=== PATIENT | male | born 1980 | race Caucasian/White ===

== ENCOUNTER 2019-09-04 17:34 | Emergency (ER) | payer SELFPAY ==
[~2019-09-04] VITALS: Ht 180.3 cm; Wt 115.7 kg
[2019-09-04 17:39] VITALS: BP_SYST 137; BP_SYST 176; BP_DIAS 113; BP_DIAS 151
--- NOTE | 2019-09-04 17:40 | NUR ---
PT [facility] AND TAKEN TO BED 6.
--- NOTE | 2019-09-04 17:45 | NUR ---
PT PLACED ON 3 LEAD ECG AND PULSE OX.
--- NOTE | 2019-09-04 17:50 | NUR ---
PT AMBULATED TO BATHROOM FOR URINE SAMPLE, STEADY GAIT
[2019-09-04 18:47] LABS: BARBITURATE, URINE NEG. ng/ml (NEG <=200); BENZODIAZEPINE, URINE NEG. ng/mL (NEG <=200); CANNABINOID, URINE POS. ng/mL (NEG <=50); COCAINE, URINE NEG. ng/mL (NEG <=300); OPIATE, URINE NEG. ng/mL (NEG <=2000); PHENCYCLIDINE SCREEN,URINE NEG. ng/mL (NEG <=25)
--- NOTE | 2019-09-04 19:01 | NUR ---
PT LYING IN BED RR EVEN AND UNLABORED, PT ON CELL PHONE.
--- NOTE | 2019-09-04 19:11 | NUR ---
DR. SPAULDING AT BEDSIDE.
[2019-09-04] MEDS ORDERED: LORazepam 1 MG TAB PO ONE (19:15)
--- NOTE | 2019-09-04 19:20 | NUR ---
REPORT RECIVED FROM BRADY ESPINOZA. PT ON MONITOR. VSS. PT AAO X 4. RESPIRATIONS ARE EVEN AND UNLABORED. 0/10 pain.
--- NOTE | 2019-09-04 19:22 | NUR ---
Pt report given to ALEXIS ARVIZU. Transfer of care at this time.
--- NOTE | 2019-09-04 19:31 | NUR ---
LAB AT BEDSIDE.
[2019-09-04 19:51] LABS: BASOPHILS # (AUTO) 0.1 K/uL (0.00-0.22); BASOPHILS % (AUTO) 0.4 % (0.0-2.0); EOSINOPHILS % (AUTO) 0.3 % (0.0-4.0); HEMATOCRIT 48.1 % (36-52); HEMOGLOBIN 16.6 g/dL (12.0-18.0); LYMPHOCYTES # (AUTO) 3.5 K/uL (2.0-11.5); LYMPHOCYTES % (AUTO) 23.5 % (20.5-51.1); MEAN CORPUSCULAR HEMOGLOBIN 31 pg (27-31); MEAN CORPUSCULAR HGB CONC 35 g/dL (33-37); MEAN CORPUSCULAR VOLUME 89.3 fL (80-94); MONOCYTES # (AUTO) 1.3 K/uL (0.8-1.0); MONOCYTES % (AUTO) 8.7 % (1.7-9.3); NEUTROPHILS # (AUTO) 10.1 K/uL (1.8-7.7); NEUTROPHILS % (AUTO) 67.1 % (42.2-75.2); PLATELET COUNT (AUTO) 382 K/uL (140-450); RED BLOOD CELL COUNT(AUTO) 5.39 MIL/uL (4.20-6.10); RED CELL DISTRIBUTION WIDTH 13.7 % (11.6-13.7)
--- NOTE | 2019-09-04 20:00 | NUR ---
DR. COOPER AT BEDSIDE.
[2019-09-04 20:20] LABS: ALBUMIN 4.1 g/dL (3.4-5.0); ANION GAP 14.1 (8-16); ASPARTATE AMINOTRANSFERASE 24 U/L (15-37); CARBON DIOXIDE 27.1 mmol/L (21-32); CHLORIDE 101 mmol/L (98-107); CREATININE 0.9 mg/dL (0.6-1.3); GFR ARICAN-AMERICAN 122 mL/min (>90); GLUCOSE 104 mg/dL (74-106); POTASSIUM 3.2 mmol/L (3.5-5.1); SODIUM SERUM 139 mmol/L (136-145); THYROID STIMULATING HORMONE 1.17 uIU/mL (0.34-3.74); TOTAL BILIRUBIN 0.8 mg/dL (0.0-1.0); UREA NITROGEN, BLOOD 8 mg/dL (7-18)
[2019-09-04] MEDS ORDERED: POTASSIUM CHLORIDE 10 MEQ TABER PO ONE (20:45)
--- NOTE | 2019-09-04 20:56 | NUR ---
Patient discharged with v/s stable. Provided with copy of labs. Written and verbal after care instructions given and explained. Patient verbalized understanding. Ambulatory with steady gait. All questions addressed prior to discharge. Advised to follow up with PMD.
[2019-09-04 21:00] VITALS: BP 128/82
--- NOTE | 2019-09-04 21:00 | NUR ---
PT ON MONITOR. VSS. PT AAO X 4. RESPIRATIONS ARE EVEN AND UNLABORED. 0/10 pain. PT STATES ANXIETY HAS DECREASED. DENIES N/V/D.
== END 2019-09-04 20:56 | disposition home or self-care (01) ==
LOC: MED 17:34
DX: F15.10 Other stimulant abuse, uncomplicated (principal); F12.10 Cannabis abuse, uncomplicated; F41.9 Anxiety disorder, unspecified; J45.909 Unspecified asthma, uncomplicated
CPT/HCPCS: 36415; 80053; 80305; 84439; 84443; 85025; 99283; G0482